=== PATIENT | female | born 1995 | race Caucasian/White ===

== ENCOUNTER 2017-05-08 15:37 | Emergency (ER) | payer SELFPAY ==
[~2017-05-08] VITALS: Ht 165.1 cm; Wt 58.3 kg
[~2017-05-08 15:37] MED LIST: IMOD2TAB PO; ZOFR4TAB3 SL
[2017-05-08 15:43] VITALS: BP 147/79; PULSE 131; RESP 15; TEMP 99; O2SAT 99
== END 2017-05-08 17:30 | disposition left against medical advice (07) ==
LOC: PHEFT 15:37
DX: S61.412A Laceration without foreign body of left hand, initial encounter (principal); W25.XXXA Contact with sharp glass, initial encounter; Z53.21 Procedure and treatment not carried out due to patient leaving prior to being seen by health care provider
CPT/HCPCS: 99281